=== PATIENT | male | born 1950 | race Caucasian/White ===

== ENCOUNTER 2017-04-10 22:02 | Inpatient (IN) ==
[2017-04-11] MEDS ORDERED: METHOCARBAMOL 500 MG TABLET PO PRN (00:57)
[2017-04-11] MEDS ORDERED: ENOXAPARIN 40 MG/0.4 ML SYRINGE SUBCUT SCH (01:00)
[2017-04-11] MEDS ORDERED: GLUCAGON 1 MG VIAL IM PRN (01:54)
[2017-04-11] MEDS ORDERED: DEXTROSE 50% 25 GM/50 ML VIAL IV PRN (01:54)
[2017-04-11 06:16] LABS: Basophils # 0.1 10*3/uL (0.0-0.2); Basophils % 0.4 % (0.0-0.8); Eosinophils # 0.1 10*3/uL (0.0-0.87); Eosinophils % 0.8 % (0.00-10.9); Hematocrit 31.7 VOL% (42.0-52.0); Hemoglobin 10.3 GM/DL (14.0-18.0); Immature Granulocytes % 0.6 %; Immature Granulocytes Absolute 0.08 #; Lymphocytes # 2.3 10*3/uL (1.4-4.0); Lymphocytes % 16.9 % (21.2-54.2); Mean Corpuscular HGB Conc 32.5 GM/DL (32-36); Mean Corpuscular Hemoglobin 28 PG (27-34); Mean Corpuscular Volume 84.8 FL (87-102); Mean Platelet Volume 9.8 FL (9.6-12.0); Monocytes # 1.5 10*3/uL (0.11-0.8); Monocytes % 11.2 % (1.7-12.7); Neutrophils # 9.5 10*3/uL (1.4-7.4); Neutrophils % 70.1 % (38.7-73.9); Platelet Count 350 T/CUMM (130-400); Red Blood Count 3.74 MC/CUMM (3.8-5.5); Red Cell Distribution Width 15.1 % (9.3-17.3); White Blood Count 13.5 T/CUMM (4-12)
[2017-04-11 06:20] LABS: Risk Ratio 3.3; VLDL CHOLESTEROL 17.2 MG/DL
[2017-04-11 06:27] LABS: Calcium 8.5 MG/DL (8.5-10.1); Potassium 3.9 MMOL/L (3.5-5.1)
[2017-04-11 06:28] LABS: Free T4 (Free Thyroxine) 1.58 NG/DL (0.76-1.46); Thyroid Stimulating Hormone 0.274 uIU/ml (0.358-3.74)
[2017-04-11] MEDS: LORATADINE 10 MG TABLET PO SCH (08:55)
[2017-04-11] MEDS: ATORVASTATIN 10 MG TABLET PO SCH (08:55)
[2017-04-11] MEDS: CARVEDILOL 25 MG TABLET PO SCH ×2 (08:55→22:06)
[2017-04-11] MEDS: FUROSEMIDE 40 MG/4 ML VIAL IV SCH ×2 (08:55→16:12)
[2017-04-11] MEDS: TELMISARTAN 40 MG TABLET PO SCH (08:55)
[2017-04-11] MEDS: metFORMIN 500 MG TABLET PO SCH ×2 (08:55→16:28)
[2017-04-11] MEDS: POTASSIUM CHLORIDE 20 MEQ TABLET PO SCH ×2 (08:55→22:05)
[2017-04-11] MEDS: PANTOPRAZOLE 40 MG TABLET PO SCH ×2 (08:55→22:05)
[2017-04-11] MEDS ORDERED: APIXABAN 5 MG TABLET PO SCH (09:00)
[2017-04-11 12:35] LABS: Apearance,Urine CLEAR (Clear); Bacteria,Urine Occasional /HPF (Few); Bilirubin,Urine Negative (Negative); Blood, Urine Negative (Negative); Glucose,Urine (UA) Negative (Negative); Hyaline Casts,Urine 5 /LPF (0-3); Ketones,Urine Negative (Negative); Mucus,Urine Occasional /LPF (Occasional); Nitrite,Urine Negative (Negative); Protein,Urine 30 MG/DL; RBC,Urine <1 /HPF (0-4); Squamous Epithelial Cell,Urine Occasional /HPF (0-10); Urine Color Yellow (Yellow); Urine Specific Gravity 1.006 (1.001-1.035); Urine Urobilinogen < 2.0 EU/DL (0.2-1.0)
[2017-04-11] MEDS ORDERED: COLCHICINE 0.6 MG TABLET PO ONE (16:09)
[2017-04-11] MEDS ORDERED: COLCHICINE 0.6 MG TABLET PO SCH (21:00)
[2017-04-12 05:42] LABS: Basophils % 0.3 % (0.0-0.8); Eosinophils # 0.1 10*3/uL (0.0-0.87); Eosinophils % 0.4 % (0.00-10.9); Hematocrit 31.5 VOL% (42.0-52.0); Hemoglobin 10.2 GM/DL (14.0-18.0); Immature Granulocytes % 0.6 %; Immature Granulocytes Absolute 0.09 #; Lymphocytes # 1.8 10*3/uL (1.4-4.0); Lymphocytes % 12.9 % (21.2-54.2); Mean Corpuscular HGB Conc 32.4 GM/DL (32-36); Mean Corpuscular Hemoglobin 27 PG (27-34); Mean Corpuscular Volume 84.5 FL (87-102); Mean Platelet Volume 9.7 FL (9.6-12.0); Monocytes # 1.6 10*3/uL (0.11-0.8); Monocytes % 10.9 % (1.7-12.7); Neutrophils # 10.7 10*3/uL (1.4-7.4); Neutrophils % 74.9 % (38.7-73.9); Platelet Count 384 T/CUMM (130-400); Red Blood Count 3.73 MC/CUMM (3.8-5.5); Red Cell Distribution Width 15.1 % (9.3-17.3); White Blood Count 14.2 T/CUMM (4-12)
[2017-04-12 06:10] LABS: Calcium 8.6 MG/DL (8.5-10.1)
[2017-04-12 06:11] LABS: Osmolality,Calculated 277.5 MOS/KG (273-304)
[2017-04-12] MEDS: LORATADINE 10 MG TABLET PO SCH (11:15)
[2017-04-12] MEDS: FUROSEMIDE 40 MG TABLET PO SCH (11:15)
[2017-04-12] MEDS: ATORVASTATIN 10 MG TABLET PO SCH (11:16)
[2017-04-12] MEDS: POTASSIUM CHLORIDE 20 MEQ TABLET PO SCH ×2 (11:16→22:36)
[2017-04-12] MEDS: CARVEDILOL 25 MG TABLET PO SCH ×2 (11:16→22:36)
[2017-04-12] MEDS: PANTOPRAZOLE 40 MG TABLET PO SCH ×2 (11:17→22:36)
[2017-04-12] MEDS: TELMISARTAN 40 MG TABLET PO SCH (11:17)
[2017-04-12] MEDS: metFORMIN 500 MG TABLET PO SCH (11:18)
[2017-04-12] MEDS ORDERED: DEXTROSE 50% 25 GM/50 ML VIAL IV PRN (11:59)
[2017-04-12] MEDS ORDERED: GLUCAGON 1 MG VIAL IM PRN (11:59)
[2017-04-12] MEDS: INSULIN REGULAR 100 UNIT/ML SUBCUT SCH ×2 (14:02→20:09)
[2017-04-13] MEDS: INSULIN REGULAR 100 UNIT/ML SUBCUT SCH ×2 (01:38→07:03)
[2017-04-13 04:45] LABS: Basophils # 0.1 10*3/uL (0.0-0.2); Basophils % 0.3 % (0.0-0.8); Eosinophils # 0.1 10*3/uL (0.0-0.87); Eosinophils % 0.8 % (0.00-10.9); Hematocrit 30.5 VOL% (42.0-52.0); Hemoglobin 9.9 GM/DL (14.0-18.0); Immature Granulocytes % 0.6 %; Immature Granulocytes Absolute 0.09 #; Lymphocytes # 2.5 10*3/uL (1.4-4.0); Lymphocytes % 15.9 % (21.2-54.2); Mean Corpuscular HGB Conc 32.5 GM/DL (32-36); Mean Corpuscular Hemoglobin 27 PG (27-34); Mean Corpuscular Volume 84.5 FL (87-102); Mean Platelet Volume 9.8 FL (9.6-12.0); Monocytes # 1.7 10*3/uL (0.11-0.8); Monocytes % 11.1 % (1.7-12.7); Neutrophils # 11.2 10*3/uL (1.4-7.4); Neutrophils % 71.3 % (38.7-73.9); Platelet Count 402 T/CUMM (130-400); Red Blood Count 3.61 MC/CUMM (3.8-5.5); White Blood Count 15.6 T/CUMM (4-12)
[2017-04-13 05:16] LABS: Magnesium 1.8 MG/DL (1.8-2.4); Osmolality,Calculated 274.7 MOS/KG (273-304); Potassium 4.2 MMOL/L (3.5-5.1)
[2017-04-13] MEDS: FUROSEMIDE 40 MG TABLET PO SCH (08:26)
[2017-04-13] MEDS: PANTOPRAZOLE 40 MG TABLET PO SCH (08:28)
[2017-04-13] MEDS: POTASSIUM CHLORIDE 20 MEQ TABLET PO SCH (08:28)
[2017-04-13] MEDS: TELMISARTAN 40 MG TABLET PO SCH (08:39)
[2017-04-13] MEDS: CARVEDILOL 25 MG TABLET PO SCH (08:40)
[2017-04-13] MEDS: LORATADINE 10 MG TABLET PO SCH (08:40)
[2017-04-13] MEDS ORDERED: COLCHICINE 0.6 MG TABLET PO SCH (09:00)
[2017-04-13 11:58] VITALS: BP 117/66
[2017-04-14 14:36] LABS: Myeloperoxidase Antibody < 0.2 U
[2017-04-16 05:36] LABS: Cyclic Citrull Peptide Ab < 15.6 U
== END 2017-04-13 12:56 | disposition home or self-care (01) | DRG 292 ==
LOC: N.TELES 23:28 → SUATTDRO 23:28 → N.TELES 04-13 14:33
PROVIDERS: ADMIT Internal Medicine Infectious Disease; ATTEND Internal Medicine